=== PATIENT | male | born 1995 | race Two or more races ===

== ENCOUNTER 2017-07-07 00:04 | Emergency (ER) | payer SELFPAY ==
[~2017-07-07] VITALS: Ht 160 cm; Wt 68.9 kg
[2017-07-07 00:33] VITALS: BP 157/65
== END 2017-07-07 02:08 | disposition left against medical advice (07) ==
LOC: ER 00:07
DX: T63.301A Toxic effect of unspecified spider venom, accidental (unintentional), initial encounter (principal); Z53.21 Procedure and treatment not carried out due to patient leaving prior to being seen by health care provider; Y92.89 Other specified places as the place of occurrence of the external cause